=== PATIENT | male | born 1990 | race Caucasian/White ===

== ENCOUNTER 2024-08-08 06:59 | Emergency (ER) | payer OTHER ==
[~2024-08-08] VITALS: Ht 170.2 cm; Wt 77.0 kg
[~2024-08-08 06:59] MED LIST: NO HOME MEDS
[2024-08-08 07:13] VITALS: BP 122/81
[2024-08-08 07:30] VITALS: BP 127/80
[2024-08-08] MEDS ORDERED: ACETAMINOPHEN 500 MG TAB PO ONE (07:35)
[2024-08-08] MEDS ORDERED: Diph, Acellular Pertussis, Tet 0.5 ML/VIAL (Tdap) SDV IM ONE (07:55)
[2024-08-08 08:00] VITALS: BP 127/79
[2024-08-08 08:31] VITALS: BP 112/66
[2024-08-08 08:36] LABS: BASO% 0.2 % (0-3); EOS% 2.2 % (0-8); HEMOGLOBIN 14.5 g/dl (14.0-18.0); IMMATURE GRANULOCYTES 0.2 % (0.0-5.0); LYMPH% 43.5 % (15-41); MEAN CELL VOLUME 89.4 fL CALC (80.0-100.0); MEAN CORPUSCULAR HGB 30.9 pG CALC (26.0-32.0); MEAN CORPUSCULAR HGB CONC 34.5 g/dL CAL (32.0-36.0); MONO% 6.7 % (2-13); NEUT# 3.88 thou/uL (1.82-7.42); NEUT% 47.2 % (42-76); RED BLOOD COUNT 4.7 mill/uL (4.70-6.10); RED CELL DISTRI WIDTH 11.7 % (11.5-15.5)
[2024-08-08] MEDS ORDERED: NAPROXEN500 MG PO (09:58)
[2024-08-08 10:08] VITALS: BP 112/66
== END 2024-08-08 10:15 | disposition home or self-care (01) | DRG 605 ==
LOC: ED 06:59
PROVIDERS: Family Medicine
DX: S00.93XA Contusion of unspecified part of head, initial encounter (principal); R07.89 Other chest pain; M54.2 Cervicalgia; M54.50 Low back pain, unspecified; M25.512 Pain in left shoulder; V49.40XA Driver injured in collision with unspecified motor vehicles in traffic accident, initial encounter; Z72.0 Tobacco use
CPT/HCPCS: 90715

== ENCOUNTER 2024-11-02 12:25 | Emergency (ER) | payer SELFPAY ==
[~2024-11-02] VITALS: Ht 170.2 cm; Wt 84.0 kg
[~2024-11-02 12:25] MED LIST changes: +NAPROXEN500 MG PO
[2024-11-02] MEDS ORDERED: BACTRIM DS1 TAB PO (12:55)
[2024-11-02 13:00] VITALS: BP 147/82
== END 2024-11-02 13:21 | disposition home or self-care (01) | DRG 603 ==
LOC: ED 12:25
DX: L03.115 Cellulitis of right lower limb (principal); L02.415 Cutaneous abscess of right lower limb; Z72.0 Tobacco use